=== PATIENT | female | born 1990 | race Caucasian/White ===

== ENCOUNTER 2016-04-25 12:52 | Emergency (ER) | payer BC, OTHER ==
--- NOTE | 2016-04-25 13:05 | ER Document Report ---
ED Medical Screen (RME) - General Stated Complaint: VAGINAL BLEEDING Mode of Arrival: Ambulatory Information source: Patient Notes: She presents to the emergency department with vaginal bleeding. Patient is approximately 8 weeks . Denies trauma. Reports spotting yesterday heavier today. I have greeted and performed a rapid initial assessment of this patient. A comprehensive ED assessment and evaluation of the patient, analysis of test results and completion of the medical decision making process will be conducted by additional ED providers. - Related Data Allergies/Adverse Reactions: No Known Allergies Allergy (Unverified 02/05/11 20:07) Past Medical History - Immunizations Hx Diphtheria, Pertussis, Tetanus Vaccination: Yes
[2016-04-25 13:29] LABS: ABSOLUTE EOSINOPHILS # (AUTO) 0.1 10^3/uL (0.0-0.6); ABSOLUTE LYMPHOCYTES (AUTO) 1.8 10^3/uL (0.5-4.7); ABSOLUTE MONOCYTES (AUTO) 0.4 10^3/uL (0.1-1.4); ABSOLUTE NEUT (AUTO) 4.7 10^3/uL (1.7-8.2); BASOPHILS % (AUTO) 0.5 % (0-2); EOSINOPHILS % (AUTO) 1.3 % (0-6); HEMATOCRIT 40.9 % (36.0-47.0); HEMOGLOBIN 14.1 g/dL (12.0-15.5); HGB HCT DIFFERENCE 1.4; LYMPHOCYTES % (AUTO) 24.9 % (13-45); MEAN CORPUSCULAR HEMOGLOBIN 30.1 pg (27.0-33.4); MEAN CORPUSCULAR HGB CONC 34.5 g/dL (32.0-36.0); MEAN CORPUSCULAR VOLUME 87 fl (80-97); MONOCYTES % (AUTO) 6.2 % (3-13); RED BLOOD COUNT 4.69 10^6/uL (3.72-5.28); RED CELL DISTRIBUTION WIDTH 12.6 % (11.5-14.0); SEGMENTED NEUTROPHILS % (AUTO) 67.1 % (42-78)
[2016-04-25 13:46] LABS: ALANINE AMINOTRANSFERASE 27 U/L (9-52); ALBUMIN 4.4 g/dL (3.5-5.0); ALKALINE PHOSPHATASE 47 U/L (38-126); ANION GAP 9 (5-19); ASPARTATE AMINO TRANSFERASE 17 U/L (14-36); BILIRUBIN,TOTAL 0.6 mg/dL (0.2-1.3); BLOOD UREA NITROGEN 11 mg/dL (7-20); CARBON DIOXIDE 28 mmol/L (22-30); CHLORIDE 105 mmol/L (98-107); CREATININE RESULT 0.64 mg/dL (0.52-1.25); GLUCOSE 73 mg/dL (75-110); POTASSIUM 4.3 mmol/L (3.6-5.0); SODIUM 141.7 mmol/L (137-145)
--- NOTE | 2016-04-25 17:32 | ER Document Report ---
ED GI/ - General Chief Complaint: Vaginal Bleeding Stated Complaint: VAGINAL BLEEDING Mode of Arrival: Ambulatory Notes: The patient is a 25 her old female, , 7 weeks by LMP, presents with 1 day of vaginal bleeding. She initially noticed spotting which has now increased to 1 pad every 6 hours. She has not seen an OB for this , but has an appointment in 2 days. She denies abdominal pain, nausea, vomiting, lightheadedness, syncope or rash. TRAVEL OUTSIDE OF THE [place] IN LAST 30 DAYS: No - Related Data Allergies/Adverse Reactions: No Known Allergies Allergy (Verified 04/25/16 13:05) Past Medical History - General Information source: Patient - Social History Smoking Status: Never Smoker Chew tobacco use (# tins/day): No Frequency of alcohol use: None Drug Abuse: None Family History: Reviewed & Not Pertinent Patient has suicidal ideation: No Patient has homicidal ideation: No Renal/ Medical History: Denies: Hx Peritoneal Dialysis - Immunizations Hx Diphtheria, Pertussis, Tetanus Vaccination: Yes Review of Systems - Review of Systems Notes: REVIEW OF SYSTEMS: CONSTITUTIONAL: -fevers, -chills EENT: -eye pain, -difficulty swallowing, -nasal congestion CARDIOVASCULAR:-chest pain, -syncope. RESPIRATORY: -cough, -SOB GASTROINTESTINAL: -abdominal pain, - nausea, -vomiting, -diarrhea GENITOURINARY: -dysuria, -hematuria, +vaginal bleeding MUSCULOSKELETAL: -back pain, -neck pain SKIN: -rash or skin lesions. HEMATOLOGIC: -easy bruising or bleeding. LYMPHATIC: -swollen, enlarged glands. NEUROLOGICAL: -altered mental status or loss of consciousness, -headache, - neurologic symptoms PSYCHIATRIC: -anxiety, -depression. ALL OTHER SYSTEMS REVIEWED AND NEGATIVE. Physical Exam - Vital signs Vitals: Temp Pulse Resp BP Pulse Ox 99.4 F 88 20 139/82 H 100 04/25/16 13:04 04/25/16 13:04 04/25/16 13:04 04/25/16 13:04 04/25/16 13:04 - Notes Notes: PHYSICAL EXAMINATION: GENERAL: Well-appearing, well-nourished and in no acute distress. HEAD: Atraumatic, normocephalic. EYES: Pupils equal round and reactive to light, extraocular movements intact, sclera anicteric, conjunctiva are normal. ENT: nares patent, oropharynx clear without exudates. Moist mucous membranes. NECK: Normal range of motion, supple without lymphadenopathy LUNGS: Breath sounds clear to auscultation bilaterally and equal. No wheezes rales or rhonchi. HEART: Regular rate and rhythm without murmurs ABDOMEN: Soft, nontender, normoactive bowel sounds. No guarding, no rebound. No masses appreciated. EXTREMITIES: Normal range of motion, no pitting or edema. No cyanosis. NEUROLOGICAL: Cranial nerves grossly intact. Normal speech, normal gait. Normal sensory, motor, and reflex exams. PSYCH: Normal mood, normal affect. SKIN: Warm, Dry, normal turgor, no rashes or lesions noted. Course - Re-evaluation Re-evalutation: Patient's ultrasound and beta hCG consistent with 5 weeks 2 days, which may be an early , threatened miscarriage or wrong dates. Patient not having active bleeding at this time. Os is closed on ultrasound. She has an appointment with her OB in 2 days. Instructed her to have a repeat beta hCG and ultrasound performed. A copy of her lab results and ultrasound were given to the patient to take to her OB. Patient's blood type is O-. While waiting for program, patient said that she would like to leave and received RhoGAM at her OB. Given return precautions and she understands. - Vital Signs Vital signs: Temp Pulse Resp BP Pulse Ox 99.4 F 83 16 136/94 H 100 04/25/16 13:04 04/25/16 18:15 04/25/16 18:15 04/25/16 18:15 04/25/16 18:15 - Laboratory Result Diagrams: 04/25/16 13:09 04/25/16 13:09 Laboratory results interpreted by me: 04/25/16 13:09 Glucose 73 L Beta HCG, Quant 2348.90 H Discharge - Discharge Clinical Impression: Threatened in early Condition: Good Disposition: HOME, SELF-CARE Additional Instructions: Your beta hCG is 2430 today and her ultrasound shows a possible early intrauterine . You must follow-up in 48 hours with your OB as scheduled to have a repeat blood draw and ultrasound. Return immediately to the emergency room if you notice lightheadedness, severe abdominal pain or any other concerns. : You are . care is best started as early in as possible. If you're unsure about continuing this , you should discuss this with your physician or with driver guide at [facility]. You should take only medications approved by your physician. Acetaminophen can safely be taken for minor pains. As a rule, medication for chronic conditions such as asthma or seizures can safely be continued. You should discuss with the physician every medicine you take. Any regular exercise program can be continued. Talk to your physician, however, before engaging in competitive or demanding sports. Alcohol, smoking, and "street drugs" are dangerous to your baby. Cocaine is especially dangerous. Don't use any illicit drugs! BLEEDING DURING EARLY : You have been evaluated for passing blood while . While we take this symptom very seriously, most women with your degree of bleeding will go on to have a perfectly normal baby. At this time, there is no indication that a miscarriage will occur. (A miscarriage occurs when the fetus is abnormal. There is no medicine or treatment to prevent it.) A more serious cause of bleeding is tubal (or ectopic) . An ultrasound usually can show whether the is in the uterus or in the tube. Sometimes in early , no fetus is seen. In this case, careful follow-up, including repeat blood tests and repeat ultrasound, is necessary. Do not douche or have sex for at least a week, or until OK'd by the doctor. Don't use tampons. Call the doctor or return for re-examination if there is an increase in bleeding or cramping, extreme weakness, fainting, new abdominal pain, fever, or passage of tissue. THREATENED MISCARRIAGE: You have been evaluated for a possible miscarriage. At this time, there is no indication that a miscarriage will occur. Most women with your symptoms will go on to have a perfectly normal baby. However, careful observation will be necessary. A miscarriage occurs when the fetus is abnormal. There is no medicine or treatment for it. You should rest in bed until the symptoms have resolved. Do not douche or have sex for at least a week, or until OK'd by the doctor. Call the doctor or return for re-examination if there is an increase in bleeding or cramping, or passage of tissue. RHOGAM: Rhogam is given to a woman who has Rh negative blood type when she has vaginal bleeding during her or at the time of the delivery of her baby. If a woman is Rh negative, her body will form antibodies against red blood cells from an Rh positive fetus or baby that mix with her blood during a threatened or actual miscarraige or delivery. These antibodies will remain in the woman's body forever and will attack any future Rh positive fetus preventing it from developing into a normal baby. Rhogam is given to prevent the mother's body from forming these antibodies. REPEAT BLOOD TEST: At this time, it is uncertain if you have a viable . During the first three months of , the hormone produced from the placenta will steadily rise, usually doubling in value every 2 - 3 days. In order to determine if your is viable and likely be succesful, a repeat of this blood test for the hormone is recommended in 2 - 3 days. An order for this test to be done as an outpatient is being provided. After you have this repeat test done, call your doctor or call us for the results. If the value of the test is increasing as would be expected in a normal , then your is likely to be ok. However, if the value of the test is declining, it will suggest something has happened with your and it will not likely be a successful . FOLLOW-UP CARE: If you have been referred to a physician for follow-up care, call the physician s office for an appointment as you were instructed or within the next two days. If you experience worsening or a significant change in your symptoms (very heavy bleeding with large clots of blood, passage of tissue, more severe abdominal / pelvic pain or cramping, feeling faint or severe weakness, fever, etc.), notify the physician immediately or return to the Emergency Department at any time for re-evaluation. OBSTETRIC-GYNECOLOGIC (OB-QUALITY INSPECTOR) PHYSICIANS IN [place]: The [facility] [address], [place] [phone] [facility] [address], [place] [phone] For active duty and dependents diagnosed with a threatened or miscarriage, you should follow up in the following manner: Standard patients who have a local civilian provider should follow up with that provider. Patients of the Family Practice Clinic should call your Team Nurse at 8: 00 am the following morning for further instructions. If you are neither a [facility] Standard patient nor a patient of the Family Practice Clinic, you should follow up at the [facility] ([facility]) . Patients already enrolled in the [facility] OB Clinic, [facility] patients not assigned to the Family Practice Clinic, and Active Duty patients not assigned to Family Practice Clinic should report to the [facility] Lab at 8:00 am the next morning that the [facility] is open and then you will be seen in the OB Clinic at 11:00 am. Referrals: MEGAN GARCÍA MD [Primary Care Provider] - Follow up as needed
[2016-04-25 18:17] VITALS: BP 136/94
== END 2016-04-25 18:17 | disposition home or self-care (01) ==
LOC: ER 12:52
DX: O20.0 Threatened abortion (principal); Z3A.01 Less than 8 weeks gestation of pregnancy
CPT/HCPCS: 36415; 76817; 80053; 84702; 85025; 86850; 86900; 86901; 99284

== ENCOUNTER 2017-01-27 01:57 | Inpatient (IN) | payer BC ==
[2017-01-27 02:34] LABS: APPEARANCE,URINE CLOUDY; BILIRUBIN,URINE NEGATIVE (NEGATIVE); GLUCOSE, URINE NEGATIVE (NEGATIVE); KETONES,URINE NEGATIVE (NEGATIVE); LEUKOCYTE ESTERASE,URINE MODERATE (NEGATIVE); NITRITE,URINE NEGATIVE (NEGATIVE); PROTEIN,URINE 30 mg/dL (NEGATIVE); URINE SPECIFIC GRAVITY 1.025
[2017-01-27 02:57] LABS: URINE BARBITURATES SCREEN NEGATIVE; URINE OPIATES LOW NEGATIVE; URINE PHENCYCLIDINE SCREEN NEGATIVE
[2017-01-27 05:31] LABS: ABSOLUTE BASOPHILS # (AUTO) 0.1 10^3/uL (0.0-0.2); ABSOLUTE EOSINOPHILS # (AUTO) 0.1 10^3/uL (0.0-0.6); ABSOLUTE LYMPHOCYTES (AUTO) 1.9 10^3/uL (0.5-4.7); ABSOLUTE MONOCYTES (AUTO) 0.7 10^3/uL (0.1-1.4); ABSOLUTE NEUT (AUTO) 11.1 10^3/uL (1.7-8.2); BASOPHILS % (AUTO) 0.5 % (0-2); EOSINOPHILS % (AUTO) 0.6 % (0-6); HEMATOCRIT 35.9 % (36.0-47.0); HEMOGLOBIN 12.4 g/dL (12.0-15.5); HGB HCT DIFFERENCE 1.3; LYMPHOCYTES % (AUTO) 13.5 % (13-45); MEAN CORPUSCULAR HEMOGLOBIN 30.2 pg (27.0-33.4); MEAN CORPUSCULAR HGB CONC 34.5 g/dL (32.0-36.0); MEAN CORPUSCULAR VOLUME 88 fl (80-97); MONOCYTES % (AUTO) 5.3 % (3-13); RED CELL DISTRIBUTION WIDTH 13.4 % (11.5-14.0); SEGMENTED NEUTROPHILS % (AUTO) 80.1 % (42-78); WHITE BLOOD COUNT 13.9 10^3/uL (4.0-10.5)
[2017-01-27] MEDS ORDERED: FENTANYL/BUPIVACAINE/NS/PF 200 MCG/100 ML RTUINJ EPI ONE (05:33)
[2017-01-27] MEDS ORDERED: EPHEDRINE SULFATE INJ 50 MG/1 ML AMPULE ONE (05:33)
[2017-01-27] MEDS ORDERED: BUPIVACAINE HCL 0.25 % INJ/PF (2.5 MG/1 ML) 30 ML VIAL ONE (05:33)
[2017-01-27] MEDS ORDERED: OXYTOCIN/NORMAL SALINE 20 UNIT/1,000 ML RTUINJ ONE (06:18)
[2017-01-27] MEDS ORDERED: MISOPROSTOL 0.2 MG TABLET ONE (06:18)
[2017-01-27] MEDS ORDERED: LIDOCAINE 1% INJ-PF (10 MG/ML) 30 ML SDV ONE (06:18)
[2017-01-27] MEDS ORDERED: ACETAMINOPHEN WITH CODEINE #3 TABLET PO PRN ×2 (07:15)
[2017-01-27] MEDS ORDERED: PROMETHAZINE HCL 25 MG SUPP.RECT PR PRN (07:15)
[2017-01-27] MEDS ORDERED: MEASLES,MUMPS&RUBELLA VACC/PF 0.5 ML VIAL SUBCUT PRN (07:15)
[2017-01-27] MEDS ORDERED: MAGNESIUM HYDROXIDE SUSP 30 ML UDCUP PO PRN (07:15)
[2017-01-27] MEDS ORDERED: DIPH/PERTUSS(ACELL)/TETANUS VAC/PF 0.5 ML SYR (>=10YO) IM PRN (07:15)
[2017-01-27] MEDS ORDERED: NA PHOS,M-B/NA PHOS,DI-BA (ADULT) 133 ML ENEMA PR PRN (07:15)
[2017-01-27] MEDS ORDERED: PROMETHAZINE HCL INJ 25 MG/1 ML VIAL IV PRN (07:15)
[2017-01-27] MEDS ORDERED: PSEUDOEPHEDRINE HCL 30 MG TABLET PO PRN (07:15)
[2017-01-27] MEDS ORDERED: DIPHENHYDRAMINE HCL 25 MG CAPSULE PO PRN (07:15)
[2017-01-27] MEDS ORDERED: ZOLPIDEM TARTRATE 5 MG TABLET PO PRN (07:15)
[2017-01-27] MEDS ORDERED: DIBUCAINE 1% OINTMENT 28 GM TP PRN (07:15)
[2017-01-27] MEDS ORDERED: PROMETHAZINE HCL 25 MG TABLET PO PRN (07:15)
[2017-01-27] MEDS ORDERED: BENZOCAINE/MENTHOL AEROSOL SPRAY 56 ML TOP PRN (07:15)
[2017-01-27] MEDS ORDERED: GLYCERIN/WITCH HAZEL LEAF 1 EACH MED..PAD TP PRN (07:15)
[2017-01-27] MEDS ORDERED: ACETAMINOPHEN 650 MG SUPP.RECT PR PRN (07:15)
[2017-01-27] MEDS ORDERED: OXYTOCIN/NORMAL SALINE 20 UNIT/1,000 ML RTUINJ IV PRN (07:15)
--- NOTE | 2017-01-27 09:42 | Admission Physical ---
Datetime Report Generated by CPN: 01/27/2017 09:42 CURRENT ADMISSION Chief Complaint: Uterine Contractions Indication for Induction: Not Applicable Indication for Induction: Term, Intrauterine ; Active Labor Admit Plan: Admit to Unit; Initiate Labor Protocol ALLERGIES Medication Allergies: No Medication Allergies: No Known Allergies (04/25/2016) Latex: No Latex Allergies Food Allergies: none Environmental Allergies: none OBSTETRICAL HISTORY EDC: 02/07/2017 00:00 : 4 Para: 1 Term: 0 : 1 SAB: 2 IAB: 0 Ectopic: 0 Livin Cesareans: 0 VBACs: 0 Multiple Births: 0 Gestational Diabetes: No Rh Sensitization: No Incompetent Cervix: No VIBHA: No Infertility: No ART Treatment: No Uterine Anomaly: No IUGR: No Hx Previous C/S: No Macrosomia: No Hx Loss/Stillborn: No PIH: No Hx : No Placenta Previa/Abruption: No Depression/PP Depression: Yes PTL/PROM: No Post Hemorrhage: No Current Procedures: Ultrasound; NST Obstetrical History Comments: G1- SAB with D_C 2005 G3- 2015 G3- SAB G4- current SEE RECORDS Alcohol: No Marijuana : No Cocaine: No Other Illicit Drugs: No Cigarettes: Former Smoker. [id number] MEDICAL HISTORY Diabetes: No Blood Transfusion: No Pulmonary Disease (Asthma, TB): No Breast Disease: No Hypertension: No Kst Operator Surgery: No Heart Disease: No Hosp/Surgery: No Anesthetic Complications: No Kidney Disease: No Abnormal Pap Smear: No Neuro/Epilepsy: No Psychiatric Disorders: Yes Other Medical Diseases: No Hepatitis/Liver Disease: No Significant Family History: No Varicosities/Phlebitis: No Thyroid Dysfunction: No INFECTIOUS HISTORY Gonorrhea: No Genital Herpes: No Chlamydia: No Tuberculosis: No Syphilis: No Hepatitis: No HIV/AIDS Exposure: No Rash or Viral Illness: No HPV: No PHYSICAL EXAM General: Normal HEENT: Normal Neurologic: Normal Thyroid: Normal Heart: Normal Lungs: Normal Breast: Deferred Back: Normal Abdomen: Normal Genitourinary Exam: Normal Extremities: Normal DTRs: Normal Pelvic Type: Adequate Vital Signs: Reviewed VAGINAL EXAM Dilatation: 5 Effacement: 100 MEMBRANES Pooling: Negative Membranes: Intact FETUS A EGA: 38.3 Monitoring: External US FHR- Baseline: 140 Variability: Moderate 6-25bpm Decelerations: None FHR Category: Category I Presentation: Vertex Admit Comment: efw 7-8 lbs PLANS FOR LABOR AND DELIVERY Pain Management: Epidural Feeding Preference: Formula Benefit of Breast Feed Discussed: Yes Circumcision: Yes INFORMED CONSENT Signature: with User ID: [email or web address]
[2017-01-27] MEDS: FAMOTIDINE 20 MG TABLET PO SCH ×2 (10:50→21:30)
[2017-01-27] MEDS: FERROUS SULFATE 325 MG TABLET PO SCH ×2 (10:50→17:11)
[2017-01-27] MEDS: PRENATAL VITAMIN W DHA CAPSULE PO SCH (10:51)
[2017-01-27] MEDS: SENNOSIDES/DOCUSATE 8.6-50 MG 1 EACH TABLET PO SCH (10:51)
[2017-01-27] MEDS: DOCUSATE SODIUM 100 MG CAPSULE PO SCH ×2 (10:51→17:11)
[2017-01-27 12:55] LABS: URINE METHADONE SCREEN NEGATIVE
[2017-01-27] MEDS: IBUPROFEN 800 MG TABLET PO SCH ×2 (15:18→21:31)
[2017-01-28] MEDS: IBUPROFEN 800 MG TABLET PO SCH ×3 (06:26→21:57)
[2017-01-28 07:29] LABS: HEMATOCRIT 31.6 % (36.0-47.0); HEMOGLOBIN 11.1 g/dL (12.0-15.5); HGB HCT DIFFERENCE 1.7; MEAN CORPUSCULAR HEMOGLOBIN 31.1 pg (27.0-33.4); MEAN CORPUSCULAR HGB CONC 35.1 g/dL (32.0-36.0); MEAN CORPUSCULAR VOLUME 89 fl (80-97); RED BLOOD COUNT 3.57 10^6/uL (3.72-5.28); RED CELL DISTRIBUTION WIDTH 13.2 % (11.5-14.0); WHITE BLOOD COUNT 10.4 10^3/uL (4.0-10.5)
[2017-01-28] MEDS: DOCUSATE SODIUM 100 MG CAPSULE PO SCH ×2 (09:46→17:19)
[2017-01-28] MEDS: FAMOTIDINE 20 MG TABLET PO SCH ×2 (09:46→21:57)
[2017-01-28] MEDS: PRENATAL VITAMIN W DHA CAPSULE PO SCH (09:46)
[2017-01-28] MEDS: FERROUS SULFATE 325 MG TABLET PO SCH ×2 (09:46→17:19)
[2017-01-28] MEDS: SENNOSIDES/DOCUSATE 8.6-50 MG 1 EACH TABLET PO SCH (09:47)
--- NOTE | 2017-01-28 10:31 | PDOC PROGRESS REPORT ---
Subjective-OB Subjective: Post Delivery Day: 26 year old. Denies any needs at this time bottlefeeding ff@u-1 mild lochia no complaints anticipate d/c in AM Physical Exam (OB) Vital Signs: Temp Pulse Resp BP Pulse Ox 98.2 F 81 16 118/75 99 01/28/17 08:19 01/28/17 08:19 01/28/17 08:19 01/28/17 08:19 01/28/17 08:19 - PIH/Pre-Eclampsia Headache: Absent Epigastric Pain: No Visual Changes: No - Lochia Lochia Amount: Scant < 10 ml Lochia Color: Rubra/Red - Abdomen Description: Soft, Round Hernia Present: No Fundal Description: Firm, Midline Fundal Height: u/u - u/2 Objective-Diagnostic Laboratory: 01/28/17 07:16 01/27/17 01/28/17 05:20 07:16 WBC 10.4 RBC 3.57 L Hgb 11.1 L Hct 31.6 L MCV 89 MCH 31.1 MCHC 35.1 RDW 13.2 Plt Count 178 Blood Type O NEGATIVE Antibody Screen POSITIVE
[2017-01-29] MEDS: IBUPROFEN 800 MG TABLET PO SCH (06:29)
[2017-01-29] MEDS: DOCUSATE SODIUM 100 MG CAPSULE PO SCH (09:40)
[2017-01-29] MEDS: FERROUS SULFATE 325 MG TABLET PO SCH (09:41)
[2017-01-29] MEDS: SENNOSIDES/DOCUSATE 8.6-50 MG 1 EACH TABLET PO SCH (09:41)
[2017-01-29] MEDS: FAMOTIDINE 20 MG TABLET PO SCH (09:41)
[2017-01-29] MEDS: PRENATAL VITAMIN W DHA CAPSULE PO SCH (09:41)
--- NOTE | 2017-01-29 09:46 | Delivery Summary ---
Del Sum A-C Datetime Report Generated by CPN: 01/29/2017 09:46 DELIVERY PERSONNEL DELIVERY PERSONNEL: [id number] Delivery Doctor:: April England MD Labor and Delivery Nurse:: Jodie Soto RNfishing line winding machine operator Nurse:: Macy Florez RN Incident Response Consultant/FUSION OPERATOR: Lisa FaustinST Incident Response Consultant/FUSION OPERATOR: PRIYA CuadraA MATERNAL INFORMATION Delivery Anesthesia: Epidural Medications After Delivery: Pitocin Bolus-Please Comment Estimated Blood Loss (ml): 250 Maternal Complications: None LABOR SUMMARY EDC: 02/07/2017 00:00 No. Babies in Womb: 1 Attempted: No Labor Anesthesia: Epidural LABOR INFORMATION Reason for Induction: Not Applicable Onset of Labor: 01/27/2017 04:58 Complete Dilatation: 01/27/2017 06:37 Oxytocin: N/A Group B Beta Strep: negative Antibiotics # of Doses: 0 Antibiotics Time of Last Dose: N/A Name of Antibiotic Given: N/A Steroids Given: None Reason Steroids Not Administered: Not Applicable MEMBRANES Membranes Rupture Method: Spontaneous Rupture of Membranes: 01/27/2017 06:20 Length of Rupture (hr): 0.58 Amniotic Fluid Color: Clear Amniotic Fluid Amount: Moderate Amniotic Fluid Odor: Normal STAGES OF LABOR Stage 1 hr: 1 Stage 1 min: 39 Stage 2 hr: 0 Stage 2 min: 18 Stage 3 hr: 0 Stage 3 min: 4 Total Time in Labor hr: 2 Total Time in Labor min: 1 VAGINAL DELIVERY Episiotomy: None Laceration #1: None Laceration Extension #1: N/A Laceration #2: None Laceration Extension #2: N/A Laceration #3: None Laceration Extension #3: N/A Laceration Repair: Not Applicable Sponge Count Correct: Vaginal Sweep Performed Sharps Count Correct: Yes CSECTION DELIVERY Primary Indication: N/A Secondary Indication: N/A CSection Incidence: N/A Labor: N/A Elective: N/A CSection Incision: N/A BABY A INFORMATION Infant Delivery Date/Time: 01/27/2017 06:55 Method of Delivery: Vaginal Born in Route : No : N/A Forceps: N/A Vacuum Extraction: N/A Shoulder Dystocia : No PRESENTATION/POSITION BABY A Presentation: Cephalic Cephalic Presentation: Vertex Vertex Position: Left Occipital Anterior Breech Presentation: N/A PLACENTA INFORMATION BABY A Placenta Delivery Time : 01/27/2017 06:59 Placenta Method of Delivery: Spontaneous Placenta Status: Delivered SCORES BABY A Heart Rate 1 min: Slow, Below 100 bpm Resp Effort 1 min: Good Cry Reflex Irritability 1 min: Grimace Muscle Tone 1 min: Some Flexion of Extremities Color 1 min: Blue/Pale SCORE 1 MIN: 5 Heart Rate 5 min: Slow, Below 100 bpm Resp Effort 5 min: Good Cry Reflex Irritability 5 min: Cough or Sneeze or Pulls Away Muscle Tone 5 min: Active Motion Color 5 min: Body [place], Extremities Blue Resuscitation Effort 5 min: Tactile Stimulation; Oxygen; PPV/NCPAP SCORE 5 MIN: 8 INFORMATION BABY A Gestational Age at Delivery: 38.3 Gestational Status: Early Term- 37- 38.6 Weeks Infant Outcome : Liveborn Condition : Stable Sex: Male IDENTIFICATION BABY A Verification Date/Time: 01/27/2017 07:16 ID Band Number: [id number] Mother's Name Verified: Yes Infant RN Verifying Infant: D Bellavance RN/S [place] [employer] WEIGHT/LENGTH BABY A Birthweight (gm): 3853 Weight (lb): 8 Weight (oz): 8 Length (in): 21.00 Length (cm): 53.34 CORD INFORMATION BABY A No. Cord Vessels: 3 Nuchal Cord : Around Neck x1, Tight Cord Blood Taken: Yes-For Eval (Mom's Blood Type - or O+) Suction: Mouth; Nose ASSESSMENT BABY A Infant Complications: Other Infant Complications- Other: Tight Nuchal Physical Findings at Delivery: Within Normal Limits Infant Respirations: Appears Normal Skin to Skin: Yes Process Designer/ALS Called : No Infant Care By: B Gautam C Bellavance, S Gr Transferred To: Remains with Mother RESUSCITATION BABY A Resuscitation Effort: Tactile Stimulation; Oxygen; PPV/NCPAP SIGNATURES Signature: with User ID: [email or web address]
--- NOTE | 2017-01-29 12:00 | PDOC DISCHARGE SUMMARY ---
Final Diagnosis Discharge Date: 01/29/17 - Final Diagnosis (1) Vaginal delivery Is this a current diagnosis for this admission?: Yes Discharge Data Reason(s) for Admission: Onset of Labor Procedures: NST Intrapartum Procedure(s): Spontaneous Vaginal Delivery - Diagnosis Test Laboratory: Temp Pulse Resp BP Pulse Ox 98.3 F 62 16 121/79 99 01/29/17 07:53 01/29/17 07:53 01/29/17 07:53 01/29/17 07:53 01/29/17 07:53 01/27/17 01/27/17 01/28/17 02:04 05:20 07:16 RBC 4.10 3.57 L Hgb 12.4 11.1 L Hct 35.9 L 31.6 L Urine Opiates Screen NEGATIVE - Discharge information/Instructions Discharge Activity: Balance Activity w/Rest, Pelvic Rest Discharge Diet: Regular Disposition: HOME, SELF-CARE Follow up with: [facility] in: 4, Weeks
[2017-01-29 12:15] VITALS: BP 128/74
== END 2017-01-29 13:50 | disposition home or self-care (01) | DRG 775 ==
LOC: LC 01:57 → LR 05:06 → 2S 09:29
PROVIDERS: ADMIT Obstetrics & Gynecology; ATTEND Obstetrics & Gynecology
PROC: 10E0XZZ Delivery of Products of Conception, External Approach (ICD-10-PCS; principal; 2017-01-27)
DX: O36.0930 Maternal care for other rhesus isoimmunization, third trimester, not applicable or unspecified (principal); O69.1XX0 Labor and delivery complicated by cord around neck, with compression, not applicable or unspecified; O36.63X0 Maternal care for excessive fetal growth, third trimester, not applicable or unspecified; Z3A.38 38 weeks gestation of pregnancy; Z37.0 Single live birth; Z87.891 Personal history of nicotine dependence
CPT/HCPCS: 36415; 80307; 81005; 85025; 85027; 86592; 86850; 86870; 86900; 86901; 86920; 86922; 94760; J2590; J3490

== ENCOUNTER 2019-05-31 23:49 | Inpatient (IN) | payer BC, MEDICAID ==
[2019-06-01 00:32] LABS: APPEARANCE,URINE CLOUDY; BILIRUBIN,URINE NEGATIVE (NEGATIVE); COLOR,URINE YELLOW; GLUCOSE, URINE NEGATIVE (NEGATIVE); KETONES,URINE NEGATIVE (NEGATIVE); LEUKOCYTE ESTERASE,URINE SMALL (NEGATIVE); NITRITE,URINE NEGATIVE (NEGATIVE); PROTEIN,URINE 30 mg/dL (NEGATIVE); URINE SPECIFIC GRAVITY 1.017; UROBILINOGEN,URINE NEGATIVE mg/dL (<2.0)
[2019-06-01 00:41] LABS: URINE AMPHETAMINES SCREEN NEGATIVE; URINE BARBITURATES SCREEN NEGATIVE; URINE BENZODIAZEPINES SCREEN NEGATIVE; URINE COCAINE SCREEN NEGATIVE; URINE MARIJUANA (THC) SCREEN NEGATIVE; URINE METHADONE SCREEN NEGATIVE; URINE PHENCYCLIDINE SCREEN NEGATIVE
[2019-06-01] MEDS ORDERED: MISOPROSTOL 0.2 MG TABLET ONE (01:40)
[2019-06-01] MEDS ORDERED: OXYTOCIN 10 UNIT/ML VIAL ONE (01:40)
[2019-06-01] MEDS ORDERED: LIDOCAINE 1% INJ-PF (10 MG/ML) 30 ML SDV ONE (01:40)
[2019-06-01] MEDS ORDERED: OXYTOCIN/NORMAL SALINE 20 UNIT/1,000 ML RTUINJ ONE (01:41)
[2019-06-01] MEDS ORDERED: RINGERS SOLUTION,LACTATED 1,000 ML IV ONE (01:41)
[2019-06-01] MEDS ORDERED: RINGERS SOLUTION,LACTATED 1,000 ML IV PRN (01:41)
[2019-06-01 02:17] LABS: ABSOLUTE BASOPHILS # (AUTO) 0.1 10^3/uL (0.0-0.2); ABSOLUTE EOSINOPHILS # (AUTO) 0.1 10^3/uL (0.0-0.6); ABSOLUTE LYMPHOCYTES (AUTO) 1.8 10^3/uL (0.5-4.7); ABSOLUTE MONOCYTES (AUTO) 0.7 10^3/uL (0.1-1.4); ABSOLUTE NEUT (AUTO) 9.1 10^3/uL (1.7-8.2); BASOPHILS % (AUTO) 0.5 % (0-2); EOSINOPHILS % (AUTO) 0.6 % (0-6); HEMATOCRIT 34.4 % (36.0-47.0); HEMOGLOBIN 11.9 g/dL (12.0-15.5); LYMPHOCYTES % (AUTO) 15.6 % (13-45); MEAN CORPUSCULAR HEMOGLOBIN 29.5 pg (27.0-33.4); MEAN CORPUSCULAR HGB CONC 34.5 g/dL (32.0-36.0); MEAN CORPUSCULAR VOLUME 86 fl (80-97); MONOCYTES % (AUTO) 5.7 % (3-13); PLATELET COUNT 228 10^3/uL (150-450); RED BLOOD COUNT 4.02 10^6/uL (3.72-5.28); RED CELL DISTRIBUTION WIDTH 13.2 % (11.5-14.0); SEGMENTED NEUTROPHILS % (AUTO) 77.6 % (42-78); TOTAL CELLS COUNTED % (AUTO) 100 %; WHITE BLOOD COUNT 11.7 10^3/uL (4.0-10.5)
[2019-06-01] MEDS ORDERED: FENTANYL/BUPIVACAINE/NS/PF 300 MCG/150 ML RTUINJ EPI ONE (02:26)
[2019-06-01] MEDS ORDERED: EPHEDRINE SULFATE INJ 50 MG/1 ML AMPULE ONE (02:26)
[2019-06-01] MEDS ORDERED: BUPIVACAINE HCL 0.25 % INJ/PF (2.5 MG/1 ML) 30 ML VIAL ONE (02:27)
--- NOTE | 2019-06-01 04:32 | Admission Physical ---
Datetime Report Generated by CPN: 06/01/2019 04:32 CURRENT ADMISSION Chief Complaint: Uterine Contractions Indication for Induction: Not Applicable Admit Impression : Term, Intrauterine ; Active Labor Admit Plan: Admit to Unit ALLERGIES Medication Allergies: No Medication Allergies: No Known Allergies (04/25/2016) Latex: No Latex Allergies OBSTETRICAL HISTORY EDC: 05/29/2019 00:00 : 5 Para: 2 Term: 1 : 1 Livin Gestational Diabetes: No Rh Sensitization: No Incompetent Cervix: No VIBHA: No Infertility: No ART Treatment: No Uterine Anomaly: No IUGR: No Hx Previous C/S: No Macrosomia: No Hx Loss/Stillborn: No PIH: No Hx : No Placenta Previa/Abruption: No Depression/PP Depression: Yes PTL/PROM: No Post Hemorrhage: No Current Procedures: Ultrasound Obstetrical History Comments: - 2005 SAB G22015, 36.6 weeks G3- 2016, SAB G4- 2016, 38 weeks G5- current SEE RECORDS Alcohol: No Marijuana : No Cocaine: No Other Illicit Drugs: No Cigarettes: Former Smoker. [id number] MEDICAL HISTORY Diabetes: No Blood Transfusion: No Pulmonary Disease (Asthma, TB): No Breast Disease: No Hypertension: No Ore Trimmer Surgery: No Heart Disease: No Hosp/Surgery: Yes Autoimmune Disorder: No Anesthetic Complications: No Kidney Disease: No Abnormal Pap Smear: No Neuro/Epilepsy: No Psychiatric Disorders: No Other Medical Diseases: No Hepatitis/Liver Disease: No Significant Family History: No Varicosities/Phlebitis: No Trauma/Violence : No Thyroid Dysfunction: No Medical History Comments: hx UTIs, PPD with first , childbirth INFECTIOUS HISTORY Gonorrhea: No Genital Herpes: No Chlamydia: No Tuberculosis: No Syphilis: No Hepatitis: No HIV/AIDS Exposure: No Rash or Viral Illness: No HPV: No PHYSICAL EXAM General: Normal HEENT: Normal Neurologic: Normal Thyroid: Normal Heart: Normal Lungs: Normal Breast: Deferred Back: Normal Abdomen: Normal Genitourinary Exam: Normal Extremities: Normal DTRs: Normal Pelvic Type: Adequate VAGINAL EXAM Dilatation: 4 Effacement: 80 Station: -2 MEMBRANES Pooling: Positive Membranes: Ruptured FETUS A EGA: 40.3 Monitoring: External US FHR- Baseline: 120 Variability: Moderate 6-25bpm Accelerations: 15X15 Decelerations: None Presentation: Vertex Admit Comment: admit for delivery PLANS FOR LABOR AND DELIVERY Labor and Delivery: None Pain Management: Epidural Feeding Preference: Formula Benefit of Breast Feed Discussed: Yes Circumcision: Yes INFORMED CONSENT Signature: with User ID: [email or web address]
[2019-06-01] MEDS ORDERED: PSEUDOEPHEDRINE HCL 30 MG TABLET PO PRN (04:43)
[2019-06-01] MEDS ORDERED: DIBUCAINE 1% OINTMENT 28 GM TP PRN (04:43)
[2019-06-01] MEDS ORDERED: ACETAMINOPHEN WITH CODEINE #3 TABLET PO PRN ×2 (04:43)
[2019-06-01] MEDS ORDERED: PROMETHAZINE HCL 25 MG TABLET PO PRN (04:43)
[2019-06-01] MEDS ORDERED: ZOLPIDEM TARTRATE 5 MG TABLET PO PRN (04:43)
[2019-06-01] MEDS ORDERED: NA PHOS,M-B/NA PHOS,DI-BA (ADULT) 133 ML ENEMA PR PRN (04:43)
[2019-06-01] MEDS ORDERED: MEASLES,MUMPS&RUBELLA VACC/PF 0.5 ML VIAL SUBCUT PRN (04:43)
[2019-06-01] MEDS ORDERED: PROMETHAZINE HCL INJ 25 MG/1 ML VIAL IV PRN (04:43)
[2019-06-01] MEDS ORDERED: PROMETHAZINE HCL 25 MG SUPP.RECT PR PRN (04:43)
[2019-06-01] MEDS ORDERED: OXYTOCIN/NORMAL SALINE 20 UNIT/1,000 ML RTUINJ IV PRN (04:43)
[2019-06-01] MEDS ORDERED: MAGNESIUM HYDROXIDE SUSP 30 ML UDCUP PO PRN (04:43)
[2019-06-01] MEDS ORDERED: ACETAMINOPHEN 650 MG SUPP.RECT PR PRN (04:43)
[2019-06-01] MEDS ORDERED: DIPHENHYDRAMINE HCL 25 MG CAPSULE PO PRN (04:43)
[2019-06-01] MEDS ORDERED: BENZOCAINE/MENTHOL AEROSOL SPRAY 56 ML TOP PRN (04:43)
[2019-06-01] MEDS ORDERED: GLYCERIN/WITCH HAZEL LEAF 1 EACH MED..WIPE TP PRN (04:43)
[2019-06-01] MEDS ORDERED: DIPH/PERTUSS(ACELL)/TETANUS VAC/PF 0.5 ML SYR (>=10YO) IM PRN (04:43)
--- NOTE | 2019-06-01 05:27 | Delivery Summary ---
Del Sum A-C Datetime Report Generated by CPN: 06/01/2019 05:26 DELIVERY PERSONNEL DELIVERY PERSONNEL: [id number] Delivery Doctor:: April England MD Labor and Delivery Nurse:: Isha Olae RNmaster ship Nurse:: Wendy Chapman RN Technical Documentation Specialist:: Jodie Soto RN Nursery Nurse:: Ivy Ybarra RN Nursery Nurse:: María Geiger RN Lift Builder Whole/CHLORINATOR OPERATOR: Jennifer Green, ST MATERNAL INFORMATION Delivery Anesthesia: Epidural Medications After Delivery: Pitocin Bolus-Please Comment Meds After Delivery Comment: Pitocin 20 units/1000 ml NSS Delivery QBL: 200 Maternal Complications: None LABOR SUMMARY EDC: 05/29/2019 00:00 No. Babies in Womb: 1 Attempted: No Labor Anesthesia: Epidural LABOR INFORMATION Reason for Induction: Not Applicable Onset of Labor: 06/01/2019 01:33 Complete Dilatation: 06/01/2019 04:15 Oxytocin: N/A Group B Beta Strep: Negative Antibiotics # of Doses: 0 Steroids Given: None Reason Steroids Not Administered: Not Applicable MEMBRANES Membranes Rupture Method: Spontaneous Rupture of Membranes: 06/01/2019 04:13 Length of Rupture (hr): 0.15 Amniotic Fluid Color: Clear Amniotic Fluid Amount: Moderate Amniotic Fluid Odor: Normal STAGES OF LABOR Stage 1 hr: 2 Stage 1 min: 42 Stage 2 hr: 0 Stage 2 min: 7 Stage 3 hr: 0 Stage 3 min: 3 Total Time in Labor hr: 2 Total Time in Labor min: 52 VAGINAL DELIVERY Episiotomy: None Laceration #1: None Laceration Extension #1: N/A Laceration #2: None Laceration Extension #2: N/A Laceration #3: None Laceration Extension #3: N/A Laceration Repair: Not Applicable Sponge Count Correct: Yes Sharps Count Correct: Yes CSECTION DELIVERY Primary Indication: N/A Secondary Indication: N/A CSection Incidence: N/A Labor: N/A Elective: N/A CSection Incision: N/A BABY A INFORMATION Delivery Date/Time: 06/01/2019 04:22 Method of Delivery: Vaginal Born in Route : No : N/A Forceps: N/A Vacuum Extraction: N/A Shoulder Dystocia : No PRESENTATION/POSITION BABY A Presentation: Cephalic Cephalic Presentation: Vertex Vertex Position: Left Occipital Anterior Breech Presentation: N/A PLACENTA INFORMATION BABY A Placenta Delivery Time : 06/01/2019 04:25 Placenta Method of Delivery: Spontaneous Placenta Status: Delivered SCORES BABY A Heart Rate 1 min: >100 bpm Resp Effort 1 min: Good Cry Reflex Irritability 1 min: Cough or Sneeze or Pulls Away Muscle Tone 1 min: Active Motion Color 1 min: Blue/Pale Resuscitation Effort 1 min: Tactile Stimulation SCORE 1 MIN: 8 Heart Rate 5 min: >100 bpm Resp Effort 5 min: Good Cry Reflex Irritability 5 min: Cough or Sneeze or Pulls Away Muscle Tone 5 min: Active Motion Color 5 min: Body [place], Extremities Blue Resuscitation Effort 5 min: Tactile Stimulation SCORE 5 MIN: 9 INFANT INFORMATION BABY A Gestational Age at Delivery: 40.3 Gestational Status: Full Term- 39- 40.6 Weeks Outcome : Liveborn Infant Condition : Stable Sex: Male IDENTIFICATION BABY A Infant Verification Date/Time: 06/01/2019 04:38 ID Band Number: [id number] Mother's Name Verified: Yes RN Verifying : A. Ari RN Additional Verifying Personnel: Marya VergaraCulture Machine RN WEIGHT/LENGTH BABY A Birthweight (gm): 3392 Infant Weight (lb): 7 Weight (oz): 8 Infant Length (in): 20.50 Length (cm): 52.07 CORD INFORMATION BABY A No. Cord Vessels: 3 Nuchal Cord : Around Neck x1, Tight Cord Blood Taken: Yes-For Eval (Mom's Blood Type - or O+) Infant Suction: None ASSESSMENT BABY A Complications: None Physical Findings at Delivery: Within Normal Limits Infant Respirations: Appears Normal Skin to Skin: Yes User Support Analyst/ALS Called : No Care By: Marya Soto, RN Transferred To: Remains with Mother BABY B INFORMATION : N/A SIGNATURES Signature: with User ID: [email or web address]
[2019-06-01] MEDS ORDERED: IBUPROFEN 800 MG TABLET ONE (05:35)
[2019-06-01] MEDS: IBUPROFEN 800 MG TABLET PO SCH ×3 (05:42→21:43)
[2019-06-01] MEDS: SENNOSIDES/DOCUSATE 8.6-50 MG 1 EACH TABLET PO SCH (09:21)
[2019-06-01] MEDS: PRENATAL VITAMIN W DHA CAPSULE PO SCH (09:21)
[2019-06-01] MEDS: DOCUSATE SODIUM 100 MG CAPSULE PO SCH ×2 (09:21→17:19)
[2019-06-01] MEDS: FAMOTIDINE 20 MG TABLET PO SCH ×2 (09:21→21:43)
[2019-06-01] MEDS: FERROUS SULFATE 325 MG TABLET PO SCH ×2 (09:21→17:19)
[2019-06-02] MEDS: IBUPROFEN 800 MG TABLET PO SCH ×2 (05:12→13:13)
[2019-06-02 06:52] LABS: HEMATOCRIT 34.7 % (36.0-47.0); MEAN CORPUSCULAR HGB CONC 34.5 g/dL (32.0-36.0); MEAN CORPUSCULAR VOLUME 87 fl (80-97); PLATELET COUNT 185 10^3/uL (150-450); RED CELL DISTRIBUTION WIDTH 13.8 % (11.5-14.0); WHITE BLOOD COUNT 8.6 10^3/uL (4.0-10.5)
[2019-06-02 08:05] VITALS: BP 115/72
[2019-06-02] MEDS: FAMOTIDINE 20 MG TABLET PO SCH (09:34)
[2019-06-02] MEDS: FERROUS SULFATE 325 MG TABLET PO SCH (09:34)
[2019-06-02] MEDS: PRENATAL VITAMIN W DHA CAPSULE PO SCH (09:34)
[2019-06-02] MEDS: SENNOSIDES/DOCUSATE 8.6-50 MG 1 EACH TABLET PO SCH (09:34)
[2019-06-02] MEDS: DOCUSATE SODIUM 100 MG CAPSULE PO SCH (09:34)
--- NOTE | 2019-06-02 09:56 | PDOC PROGRESS REPORT ---
Subjective-OB Progress Note for:: 06/02/19 Subjective: Pt doing well, she would like to go home today if baby is discharged. She has no complaints, reports light bleeding, reg diet and voiding without difficulty. Physical Exam (OB) Vital Signs: Temp Pulse Resp BP Pulse Ox 98.0 F 69 18 115/72 98 06/02/19 07:29 06/02/19 07:29 06/02/19 07:29 06/02/19 07:29 06/02/19 07:29 Intake & Output 06/01/19 06/02/19 06/03/19 06:59 06:59 06:59 Intake Total 1300 Balance 1300 Weight 73.9 kg - Lochia Lochia Amount: Scant < 10 ml Lochia Color: Rubra/Red - Abdomen Description: Soft, Round Fundal Description: Firm, Midline Fundal Height: u/u - u/2 Objective-Diagnostic Laboratory: 06/02/19 06:35 06/02/19 06:35 WBC 8.6 RBC 4.00 Hgb 12.0 Hct 34.7 L MCV 87 MCH 30.0 MCHC 34.5 RDW 13.8 Plt Count 185 Assessment and Plan(PN) - Assessment and Plan (1) Normal course Is this a current diagnosis for this admission?: Yes (2) Vaginal delivery Is this a current diagnosis for this admission?: Yes - Time Spent with Patient Time with patient: Less than 15 minutes Medications reviewed and adjusted accordingly: Yes - Disposition Anticipated Discharge: Home Within: within 24 hours
--- NOTE | 2019-06-02 14:13 | PDOC DISCHARGE SUMMARY ---
Impression - Admit/DC Date/PCP Admission Date/Primary Care Provider: 06/01/19 01:40 BRITTANY PAINTER MD Discharge Date: 06/02/19 - Discharge Diagnosis (1) Normal course Is this a current diagnosis for this admission?: Yes (2) Vaginal delivery Is this a current diagnosis for this admission?: Yes - Additional Information Resuscitation Status: Full Code Discharge Diet: Regular Discharge Activity: Balance Activity w/Rest, Pelvic Rest Referrals: BRITTANY PAINTER MD [Primary Care Provider] - Prescriptions: Ibuprofen [Motrin 800 mg Tablet] 800 mg PO Q8HP PRN #60 tablet PRN Reason: For Pain Scale 1-3 Home Medications: Prenat 115/Iron Fum/Folic/Dss [ 19 Tablet] 1 tab PO DAILY 05/31/19 Ibuprofen [Motrin 800 mg Tablet] 800 mg PO Q8HP PRN #60 tablet 06/02/19 HPI Reason(s) for Admission: Onset of Labor Procedures: NST Intrapartum Procedure(s): Spontaneous Vaginal Delivery Results Laboratory Results: WBC 8.6 10^3/uL (4.0-10.5) 06/02/19 06:35 RBC 4.00 10^6/uL (3.72-5.28) 06/02/19 06:35 Hgb 12.0 g/dL (12.0-15.5) 06/02/19 06:35 Hct 34.7 % (36.0-47.0) L 06/02/19 06:35 MCV 87 fl (80-97) 06/02/19 06:35 MCH 30.0 pg (27.0-33.4) 06/02/19 06:35 MCHC 34.5 g/dL (32.0-36.0) 06/02/19 06:35 RDW 13.8 % (11.5-14.0) 06/02/19 06:35 Plt Count 185 10^3/uL (150-450) 06/02/19 06:35 Lymph % (Auto) 15.6 % (13-45) 06/01/19 01:58 [place] % (Auto) 5.7 % (3-13) 06/01/19 01:58 Eos % (Auto) 0.6 % (0-6) 06/01/19 01:58 Baso % (Auto) 0.5 % (0-2) 06/01/19 01:58 Absolute Neuts (auto) 9.1 10^3/uL (1.7-8.2) H 06/01/19 01:58 Absolute Lymphs (auto) 1.8 10^3/uL (0.5-4.7) 06/01/19 01:58 Absolute Monos (auto) 0.7 10^3/uL (0.1-1.4) 06/01/19 01:58 Absolute Eos (auto) 0.1 10^3/uL (0.0-0.6) 06/01/19 01:58 Absolute Basos (auto) 0.1 10^3/uL (0.0-0.2) 06/01/19 01:58 Seg Neutrophils % 77.6 % (42-78) 06/01/19 01:58 Urine Color YELLOW 05/31/19 23:59 Urine Appearance CLOUDY 05/31/19 23:59 Urine pH 8.0 (5.0-9.0) 05/31/19 23:59 Ur Specific [place] 1.017 05/31/19 23:59 Urine Protein 30 mg/dL (NEGATIVE) H 05/31/19 23:59 Urine Glucose (UA) NEGATIVE mg/dL (NEGATIVE) 05/31/19 23:59 Urine Ketones NEGATIVE mg/dL (NEGATIVE) 05/31/19 23:59 Urine Blood NEGATIVE (NEGATIVE) 05/31/19 23:59 Urine Nitrite NEGATIVE (NEGATIVE) 05/31/19 23:59 Urine Bilirubin NEGATIVE (NEGATIVE) 05/31/19 23:59 Urine Urobilinogen NEGATIVE mg/dL (<2.0) 05/31/19 23:59 Ur Leukocyte Esterase SMALL (NEGATIVE) H 05/31/19 23:59 Urine Ascorbic Acid NEGATIVE (NEGATIVE) 05/31/19 23:59 Urine Opiates Screen NEGATIVE 05/31/19 23:59 Urine Methadone Screen NEGATIVE 05/31/19 23:59 Ur Barbiturates Screen NEGATIVE 05/31/19 23:59 Ur Phencyclidine Scrn NEGATIVE 05/31/19 23:59 Ur Amphetamines Screen NEGATIVE 05/31/19 23:59 U Benzodiazepines Scrn NEGATIVE 05/31/19 23:59 Urine Cocaine Screen NEGATIVE 05/31/19 23:59 U Marijuana (THC) Screen NEGATIVE 05/31/19 23:59 RPR NONREACTIVE (NONREACTIVE) 06/01/19 01:58 Blood Type O NEGATIVE 06/01/19 01:58 Antibody Screen POSITIVE 06/01/19 01:58 Antibody Identification RHOGAM INDUCED ANTI-D 06/01/19 01:58 Antigen Identification E Antigen - NEGATIVE 06/01/19 01:58 Plan Plan of Treatment: f/u at [facility] 4 wks for PPCK Time Spent: Less than 30 Minutes
== END 2019-06-02 15:42 | disposition home or self-care (01) | DRG 807 ==
LOC: LC 23:49 → LR 06-01 01:40 → 2S 06-01 06:37
PROVIDERS: ADMIT Obstetrics & Gynecology; ATTEND Obstetrics & Gynecology
PROC: 10E0XZZ Delivery of Products of Conception, External Approach (ICD-10-PCS; principal; 2019-06-01)
DX: O69.1XX0 Labor and delivery complicated by cord around neck, with compression, not applicable or unspecified (principal); Z37.0 Single live birth; Z87.891 Personal history of nicotine dependence; Z3A.40 40 weeks gestation of pregnancy
CPT/HCPCS: 1967; 36415; 80307; 81005; 85025; 85027; 86592; 86850; 86870; 86900; 86901; 94760; J2590; J3010; J3490